=== PATIENT | male | born 1995 | race Caucasian/White ===

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

== ENCOUNTER 2018-09-26 18:09 | Emergency (ER) | payer BC, OTHER ==
[~2018-09-26] VITALS: Ht 185.4 cm; Wt 122.5 kg
[2018-09-26] MEDS ORDERED: AMOXICILLIN875 MG PO (20:56)
[2018-09-26] MEDS ORDERED: CORTISPORIN SUS10 ML OT (20:56)
== END 2018-09-26 20:57 | disposition home or self-care (01) ==
LOC: ED 18:09
DX: H66.92 Otitis media, unspecified, left ear (principal); H60.92 Unspecified otitis externa, left ear; B34.9 Viral infection, unspecified; J45.909 Unspecified asthma, uncomplicated

== ENCOUNTER → 2020-02-09 | Outpatient (CLI) | payer BC, OTHER ==
[~2020-02-09] MED LIST changes: +AMOXICILLIN875 MG PO; +CORTISPORIN SUS10 ML OT
== END | disposition home or self-care (01) ==
LOC: US 10:08
DX: K76.0 Fatty (change of) liver, not elsewhere classified (principal); R74.0 Nonspecific elevation of levels of transaminase and lactic acid dehydrogenase [LDH]; R79.89 Other specified abnormal findings of blood chemistry; E80.6 Other disorders of bilirubin metabolism